=== PATIENT | female | born 1950 | race Caucasian/White ===

== ENCOUNTER → 2021-01-28 13:29 | Outpatient (CLI) | payer MEDICARE, BC ==
[2016-01-28 11:13] VITALS: BMI 51.8
[~2021-01-28 13:29] MED LIST: HYDROCODON-ACE1 EAC7 PO; MOBIC7.5 MG PO; NEURONTIN 300300 MG PO; PRILOSEC20 MG PO; ZESTORETIC 20-1 EACH PO
[2021-01-28 14:34] LABS: BASOPHILS 0.4 % (0-2); EOSINOPHILS 2.2 % (0-7); HEMATOCRIT 41.5 % (36.0-48.0); HEMOGLOBIN 13.7 g/dL (12-16); IMMATURE GRANULOCYTES 0.2 % (0-5); LYMPHOCYTE ABS# 1.42 10x3/uL (1.18-3.74); LYMPHOCYTES 17.1 % (15-50); MCH 31.7 pg (26.0-34.0); MCV 96.1 fL (80.0-100.0); MEAN PLATELET VOLUME 11.3 fL (7.4-10.4); NEUTROPHIL ABS# 6.14 10x3/uL (1.56-6.13); NEUTROPHILS 74.1 % (40-80); RBC 4.32 10x6/uL (4.00-5.40); RDW 12.8 % (11.5-14.5); WBC 8.3 10x3/uL (4.8-10.8)
[2021-01-28 14:38] LABS: ANION GAP 10.6 mmol/L (8-16); CALCIUM 9.2 mg/dL (8.5-10.1); CARBON DIOXIDE 30.6 mmol/L (21.0-32.0); CREATININE - SERUM 1.1 mg/dL (0.6-1.3); POTASSIUM - SERUM 4.2 mmol/L (3.5-5.1)
[2021-01-28 14:46] LABS: PLATELET COUNT 277 10x3/uL (130-400)
== END | disposition home or self-care (01) ==
LOC: D.LAB 13:29
PROVIDERS: ATTEND Pain Medicine Interventional Pain Medicine
DX: M48.062 Spinal stenosis, lumbar region with neurogenic claudication (principal); M54.17 Radiculopathy, lumbosacral region; Z01.818 Encounter for other preprocedural examination